=== PATIENT | male | born 1990 | race American Indian/Alaskan Native ===

== ENCOUNTER 2017-12-06 22:55 | Emergency (ER) | payer MEDICAID, OTHER ==
[2017-12-06 23:15] VITALS: BP 136/82
[2017-12-06] MEDS ORDERED: Ketorolac 30 MG/ML SDV IVPUSH ONE (23:18)
[2017-12-06] MEDS ORDERED: Clindamycin Phosphate 900 MG in Sodium Chloride 0.9% 100 ML IV ONE (23:18)
[2017-12-06] MEDS ORDERED: Sodium Chloride 0.9% 1,000 ML IV ONE (23:18)
[2017-12-06 23:48] LABS: ANION GAP 9.5; CHLORIDE,CL 109 mmol/L (101-111); SODIUM,NA 138 mmol/L (135-145)
--- NOTE | 2017-12-06 23:58 | EDM.PDOC ---
ED HPI GENERAL MEDICAL PROBLEM - General Chief Complaint: Lower Extremity Injury/Pain Stated Complaint: BROKEN FOOT NO PHONE Time Seen by Provider: 12/06/17 23:54 Source of Information: Reports: Patient History Limitations: Reports: No Limitations - History of Present Illness INITIAL COMMENTS - FREE TEXT/NARRATIVE: stepped on a nail 2 days ago and heard a crack and fell foreward hurting right hand. swelling and pain getting worse tonight. Right Feet Pain Score (Numeric/FACES): 10 Left Hand Pain Score (Numeric/FACES): 10 - Related Data Allergies Allergy/AdvReac Type Severity Reaction Status Date / Time No Known Allergies Allergy Verified 10/02/15 03:19 Home Meds: Home Meds . [No Known Home Meds] 10/02/15 [History] Past Medical History - Past Health History Medical/Surgical History: Denies Medical/Surgical History Cardiovascular History: Reports: Heart Failure Social & Family History - Family History Family Medical History: Noncontributory - Tobacco Use Smoking Status *Q: Current Every Day Smoker Years of Tobacco use: 13 Packs/Tins Daily: 1 - Recreational Drug Use Recreational Drug Use: No Review of Systems - Review of Systems Review Of Systems: ROS reveals no pertinent complaints other than HPI. ED EXAM, GENERAL - Physical Exam Exam: See Below Exam Limited By: No Limitations General Appearance: Alert, WD/WN, Mild Distress, Other (disocmfort) Ears: Hearing Grossly Normal Throat/Mouth: Normal Voice, No Airway Compromise Head: Atraumatic Neck: Non-Tender, Full Range of Motion Respiratory/Chest: No Respiratory Distress Cardiovascular: Regular Rate, Rhythm GI/Abdominal: Soft, Non-Tender Extremities: Other (right foot & left hand swollen erythematous no lymphangitis , tender R/P, NV wnl, gait limited to pain) Neurological: Alert, Oriented, Normal Cognition, No Motor/Sensory Deficits Psychiatric: Flat Affect Skin Exam: Warm, Dry, Normal Color Lymphatic: No Adenopathy Course - Vital Signs Last Recorded V/S: Last Vital Signs Temp 37.0 C 12/06/17 23:01 Pulse 93 12/06/17 23:01 Resp 18 12/06/17 23:01 BP 136/82 12/06/17 23:01 Pulse Ox 97 12/06/17 23:01 - Orders/Labs/Meds Labs: Laboratory Tests 12/06/17 12/06/1712/06/18 Range/Units 23:20 23:20 23:20 WBC 7.6 (5.0-10.0) 10^3/uL RBC 5.14 (4.6-6.2) 10^6/uL Hgb 15.4 (14.0-18.0) g/dL Hct 44.4 (40.0-54.0) % MCV 86.4 (80-100) fL MCH 30.0 (27.0-34.0) pg MCHC 34.7 (33.0-35.0) g/dL Plt Count 190 (150-450) 10^3/uL Neut % (Auto) 57.5 (42.2-75.2) % Lymph % (Auto) 30.3 (20.5-50.1) % Josephine % (Auto) 8.8 H (2-8) % Eos % (Auto) 3.3 H (1.0-3.0) % Baso % (Auto) 0.1 (0.0-1.0) % Sodium 138 (135-145) mmol/L Potassium 3.5 L (3.6-5.0) mmol/L Chloride 109 (101-111) mmol/L Carbon Dioxide 23.0 (21.0-31.0) mmol/L Anion Gap 9.5 BUN 14 (7-18) mg/dL Creatinine 0.7 (0.6-1.3) mg/dL Est Cr Clr Drug Dosing 163.67 mL/min Estimated GFR (MDRD) > 60 BUN/Creatinine Ratio 20.00 Glucose 120 H (74-105) mg/dL Lactic Acid 2.0 (0.5-2.2) mmol/L Calcium 8.8 (8.4-10.2) mg/dl Total Bilirubin 0.6 (0.2-1.0) mg/dL AST 26 (10-42) IU/L ALT 38 (10-60) IU/L Alkaline Phosphatase 96 (42-121) IU/L Total Protein 7.2 (6.7-8.2) g/dl Albumin 3.9 (3.2-5.5) g/dl Globulin 3.3 Albumin/Globulin Ratio 1.18 Meds: Medications Discontinued Medications Generic Name Dose Route Start Last Admin Trade Name Freq PRN Reason Stop Dose Admin Clindamycin Phosphate 900 mg/ 106 mls @ 200 mls/hr 12/06/17 23:18 12/06/17 23 :33 Sodium Chloride IV 12/06/17 23:49 200 mls/hr ONETIME ONE Administration Sodium Chloride 1,000 mls @ 999 mls/hr 12/06/17 23:18 12/06/17 23:29 Normal Saline IV 12/07/17 00:18 999 mls/hr .BOLUS ONE Administration Ketorolac Tromethamine 30 mg 12/06/17 23:18 12/06/17 23:29 Toradol IVPUSH 12/06/17 23:19 30 mg ONETIME ONE Administration - Re-Assessments/Exams Free Text/Narrative Re-Assessment/Exam: 12/07/17 00:50 results discussed with pt who is feeling better s/p IV + Rx Departure - Departure Time of Disposition: 00:50 Disposition: Home, Self-Care 01 Condition: Fair Clinical Impression: Cellulitis of foot Hand fracture, left Qualifiers: Encounter type: initial encounter Fracture type: closed Qualified Code(s): S62.92XA - Unspecified fracture of left wrist and hand, initial encounter for closed fracture - Discharge Information Instructions: Cellulitis, Adult, [id number] Referrals: PCP,None [Primary Care Provider] - Forms: ED Department Discharge Additional Instructions: 1) wear brace and see clinic Friday-Friday for hand fracture 2) elevate leg as much as possible next 4 to 5 days 3) see clinic Friday for foot recheck rx given; clindamycin 150mg qid x 40
== END 2017-12-07 01:04 | disposition home or self-care (01) ==
LOC: DL.ED 22:55
DX: S62.92XA Unspecified fracture of left hand, initial encounter for closed fracture (principal); L03.115 Cellulitis of right lower limb; F17.210 Nicotine dependence, cigarettes, uncomplicated; W19.XXXA Unspecified fall, initial encounter
CPT/HCPCS: 36415; 73120; 73620; 80053; 83605; 85025; 87040; 96365; 96375; 99283; J1885; J7030; J7050; S0077

== ENCOUNTER 2023-06-22 07:50 | Emergency (ER) | payer MEDICAID, OTHER ==
[2023-06-22 08:22] VITALS: BP 117/93; PULSE 90
[2023-06-22] MEDS ORDERED: Diphtheria,Pertussis(Acell),Tetanus Vaccine 0.5 ML Syringe IM ONE (08:24)
[2023-06-22] MEDS ORDERED: Lidocaine 2% with EPINEPHrine 1:200,000 20 ML SDV INJECT ONE ×2 (08:24→09:00)
== END 2023-06-22 10:34 | disposition other institution (70) ==
LOC: DL.ED 07:50
DX: S51.811A Laceration without foreign body of right forearm, initial encounter (principal); S29.001A Unspecified injury of muscle and tendon of front wall of thorax, initial encounter; Z23 Encounter for immunization; W26.0XXA Contact with knife, initial encounter
CPT/HCPCS: 12007; 71101-LT; 90471; 90715; 99283; 99283-25; J3490

== ENCOUNTER 2024-02-26 21:16 | Emergency (ER) | payer OTHER, MEDICAID ==
[2024-02-26] MEDS ORDERED: Sodium Chloride 0.9% 1,000 ML IV ONE (21:20)
[2024-02-26] MEDS: Iopamidol 612 MG/ML 100 ML Bottle IVPUSH ONE (21:20)
[2024-02-26] MEDS ORDERED: Pantoprazole 40 MG Vial IVPUSH ONE (21:23)
[2024-02-26] MEDS ORDERED: Ondansetron 4 MG/2 ML SDV IVPUSH ONE (21:24)
[2024-02-26] MEDS ORDERED: cefTRIAXone 1 GM Vial IVPUSH ONE (21:25)
[2024-02-26 21:30] LABS: BASOPHILS PERCENT AUTO 0.1 % (0.0-1.0); EOSINOPHILS PERCENT AUTO 0.2 % (1.0-3.0); HEMATOCRIT 43.7 % (40.0-54.0); HEMOGLOBIN 14.9 g/dL (14.0-18.0); LYMPHOCYTES PERCENT AUTO 11.7 % (20.5-50.1); MEAN CORPUSCULAR HEMOGLOBIN 28.5 pg (27.0-34.0); MEAN CORPUSCULAR HGB CONC 34.1 g/dL (33.0-35.0); MEAN CORPUSCULAR VOLUME 83.6 fL (80-100); MONOCYTES PERCENT AUTO 4.6 % (2-8); NEUTROPHILS PERCENT AUTO 83.4 % (42.2-75.2); PLATELET COUNT,PLT 264 10^3/uL (150-450); RED BLOOD CELL COUNT 5.23 10^6/uL (4.6-6.2); WHITE BLOOD CELL COUNT,WBC 21.4 10^3/uL (5.0-10.0)
[2024-02-26 21:50] LABS: PROTHROMBIN TIME 10.2 SEC (9.0-12.0)
[2024-02-26 21:56] LABS: A/G RATIO 1.1; ALANINE AMINOTRANSFERASE,ALT 71 U/L (16-63); ALKALINE PHOSPHATASE 127 U/L (46-116); ANION GAP 22.7 mEq/L (7-13); ASPARTATE AMNIOTRANSFERASE,AST 35 U/L (15-37); BILIRUBIN TOTAL 0.7 mg/dL (0.2-1.0); BLOOD UREA NITROGEN,BUN 10 mg/dL (7-18); BUN/CREATININE RATIO 8.5 (No establ ref range); CALCIUM 8.3 mg/dL (8.5-10.1); CARBON DIOXIDE,CO2 19 mmol/L (21-32); CHLORIDE,CL 102 mmol/L (98-107); CREATININE 1.18 mg/dL (0.70-1.30); GLUCOSE RANDOM 207 mg/dL (70-99); MAGNESIUM 2.4 mg/dL (1.8-2.4); POTASSIUM,K 2.7 mmol/L (3.5-5.1); PROTEIN TOTAL,TP 7.5 g/dL (6.4-8.2); SODIUM,NA 141 mmol/L (136-145)
[2024-02-26 21:57] LABS: ESTIMATED GFR 84 mL/min (>=60); ETHANOL BLOOD MEDICAL < 3 mg/dL (0)
[2024-02-26] MEDS ORDERED: Potassium Chloride 20 MEQ in Premix Bag 1 BAG IV ONE ×2 (22:09→22:10)
[2024-02-26 22:10] LABS: LACTIC ACID 7.6 mmol/L (0.4-2.0)
[2024-02-26] MEDS ORDERED: Sodium Chloride 0.9% 2,000 ML IV ONE (22:12)
[2024-02-26] MEDS ORDERED: levETIRAcetam in NaCl (iso-os) 1,000 MG in Premix Bag 1 BAG IV ONE (22:59)
== END 2024-02-26 23:53 ==
LOC: DL.ED 21:16
DX: R41.82 Altered mental status, unspecified (principal); S06.5X0A Traumatic subdural hemorrhage without loss of consciousness, initial encounter; S02.85XA Fracture of orbit, unspecified, initial encounter for closed fracture; S02.19XA Other fracture of base of skull, initial encounter for closed fracture; K92.0 Hematemesis; A41.9 Sepsis, unspecified organism; E87.6 Hypokalemia; M25.532 Pain in left wrist; V49.40XA Driver injured in collision with unspecified motor vehicles in traffic accident, initial encounter
CPT/HCPCS: 36415; 70450; 70486; 71260; 72125; 73110-LT; 73130-LT; 73562-RT; 74177; 80053; 80307; 83605; 83735; 84484; 85025; 85610; 86850; 86900; 86901; 87040; 93010; 96361; 96365; 96375; 99285; 99285-25; Q9967